=== PATIENT | male | born 1945 | race Caucasian/White ===

== ENCOUNTER 2021-03-12 21:30 | Inpatient (IN) ==
[2021-03-12] MEDS ORDERED: Naloxone 0.4 MG/ML INJ IVP PRN (23:59)
[2021-03-12] MEDS ORDERED: Ondansetron ODT 4 MG TAB.RAPDIS SL PRN (23:59)
[2021-03-13] MEDS ORDERED: Perflutren Lipid Microsphere 1.3 ML in 0.9 % Sodium Chloride 8.7 ML IVP PRN (02:17)
[2021-03-13] MEDS ORDERED: 0.9 % Sodium Chloride 500 ML IVC ONE (02:59)
[2021-03-13] MEDS: cefTRIAXone 1,000 MG in Water for inj. (sterile) 10 ML IVP SCH (03:03)
[2021-03-13 03:42] LABS: Basophils # 0.1 K/mcL (0.0-0.2); Basophils % 0.6 %; Eosinophils # 0.1 K/mcL (0.0-0.6); Eosinophils % 0.7 %; Hemoglobin 12.1 g/dL (12.9-16.9); Lymphocytes # 1.1 K/mcL (0.6-4.6); Lymphocytes % 10.6 %; Mean Corpuscular HGB Conc 34.6 g/dL (31.6-35.5); Mean Corpuscular Hemoglobin 31.4 pg (28.0-33.3); Mean Corpuscular Volume 90.9 fL (83.0-100.0); Mean Platelet Volume 10.1 fL (9.4-12.4); Monocytes # 0.9 K/mcL (0.0-1.3); Neutrophils # 8.3 K/mcL (1.6-8.9); Platelet Count 253 K/mcL (140-400); Red Blood Count 3.85 M/mcL (4.19-5.50); Red Cell Distribution Width 13.9 % (11.5-14.5); Segmented Neutrophils % 78.1 %; White Blood Count 10.7 K/mcL (4.3-11.1)
[2021-03-13 03:50] LABS: INR 1.4; Prothrombin Time 15.2 Seconds (9.4-12.1)
[2021-03-13 03:52] LABS: Activated Partial Thrombo Time 30.1 Seconds (26.0-36.0)
[2021-03-13 03:54] LABS: Bilirubin,Direct 0.2 mg/dL (0.0-0.2); Bilirubin,Indirect 0.4 mg/dL (0.0-1.0); Bilirubin,Total 0.6 mg/dL (0.3-1.0); Globulin 3.1 g/dL (2.4-3.5); Total Protein 6.1 g/dL (6.4-8.9)
[2021-03-13 03:56] LABS: Calcium 8.2 mg/dL (8.6-10.3); Potassium 3.2 mEq/L (3.5-5.1)
[2021-03-13] MEDS: Finasteride 5 MG TABLET PO SCH (08:28)
[2021-03-13 09:34] LABS: Basophils # 0.1 K/mcL (0.0-0.2); Basophils % 0.5 %; Eosinophils # 0.1 K/mcL (0.0-0.6); Eosinophils % 0.8 %; Hematocrit 35.8 % (37.5-50.1); Hemoglobin 12.1 g/dL (12.9-16.9); Immature Granulocytes % 1.8 % (0-4); Lymphocytes # 1.1 K/mcL (0.6-4.6); Lymphocytes % 10.1 %; Mean Corpuscular HGB Conc 33.8 g/dL (31.6-35.5); Mean Corpuscular Volume 91.8 fL (83.0-100.0); Mean Platelet Volume 10.4 fL (9.4-12.4); Monocytes # 0.9 K/mcL (0.0-1.3); Monocytes % 8.4 %; Neutrophils # 8.7 K/mcL (1.6-8.9); Platelet Count 272 K/mcL (140-400); Segmented Neutrophils % 78.4 %; White Blood Count 11.2 K/mcL (4.3-11.1)
[2021-03-13 09:54] LABS: Calcium 8.3 mg/dL (8.6-10.3); Potassium 3.6 mEq/L (3.5-5.1)
[2021-03-13] MEDS: 0.9 % Sodium Chloride 1,000 ML IVC SCH (15:21)
[2021-03-13] MEDS ORDERED: Melatonin 3 MG TABLET PO ONE (23:40)
[2021-03-14] MEDS: 0.9 % Sodium Chloride 1,000 ML IVC SCH ×3 (01:43→22:15)
[2021-03-14 04:07] LABS: Sodium, Urine 66.3 mEq/L
[2021-03-14 06:46] LABS: Basophils # 0.1 K/mcL (0.0-0.2); Eosinophils # 0.2 K/mcL (0.0-0.6); Eosinophils % 1.6 %; Hematocrit 37.2 % (37.5-50.1); Hemoglobin 12.4 g/dL (12.9-16.9); Immature Granulocytes % 3.9 % (0-4); Lymphocytes # 1.4 K/mcL (0.6-4.6); Mean Corpuscular HGB Conc 33.3 g/dL (31.6-35.5); Mean Corpuscular Hemoglobin 30.7 pg (28.0-33.3); Mean Corpuscular Volume 92.1 fL (83.0-100.0); Mean Platelet Volume 10.4 fL (9.4-12.4); Monocytes # 0.9 K/mcL (0.0-1.3); Monocytes % 6.7 %; Neutrophils # 10.7 K/mcL (1.6-8.9); Platelet Count 301 K/mcL (140-400); Red Blood Count 4.04 M/mcL (4.19-5.50); Red Cell Distribution Width 13.9 % (11.5-14.5); Segmented Neutrophils % 76.8 %; White Blood Count 13.9 K/mcL (4.3-11.1)
[2021-03-14] MEDS: Finasteride 5 MG TABLET PO SCH (07:36)
[2021-03-14] MEDS: cefTRIAXone 1,000 MG in Water for inj. (sterile) 10 ML IVP SCH (07:36)
[2021-03-14 08:02] LABS: Calcium 8.3 mg/dL (8.6-10.3); Potassium 3.3 mEq/L (3.5-5.1)
[2021-03-15] MEDS ORDERED: *HR* LORazepam 2 MG/ML VIAL IVP ONE (01:10)
[2021-03-15 05:17] LABS: Basophils # 0.1 K/mcL (0.0-0.2); Basophils % 0.4 %; Eosinophils # 0.4 K/mcL (0.0-0.6); Eosinophils % 2.9 %; Hematocrit 34.7 % (37.5-50.1); Hemoglobin 11.5 g/dL (12.9-16.9); Immature Granulocytes % 8.1 % (0-4); Lymphocytes # 1.5 K/mcL (0.6-4.6); Lymphocytes % 9.8 %; Mean Corpuscular HGB Conc 33.1 g/dL (31.6-35.5); Mean Corpuscular Hemoglobin 31.1 pg (28.0-33.3); Mean Corpuscular Volume 93.8 fL (83.0-100.0); Mean Platelet Volume 9.9 fL (9.4-12.4); Monocytes # 0.8 K/mcL (0.0-1.3); Monocytes % 5.7 %; Neutrophils # 10.8 K/mcL (1.6-8.9); Platelet Count 281 K/mcL (140-400); Red Cell Distribution Width 14.2 % (11.5-14.5); Segmented Neutrophils % 73.1 %; White Blood Count 14.8 K/mcL (4.3-11.1)
[2021-03-15 05:28] LABS: Calcium 8.4 mg/dL (8.6-10.3); Potassium 3.8 mEq/L (3.5-5.1)
[2021-03-15] MEDS: Finasteride 5 MG TABLET PO SCH (07:47)
[2021-03-15] MEDS: 0.9 % Sodium Chloride 1,000 ML IVC SCH ×2 (07:47→20:00)
[2021-03-15] MEDS: cefTRIAXone 1,000 MG in Water for inj. (sterile) 10 ML IVP SCH (07:48)
[2021-03-15] MEDS ORDERED: Piperacillin/Tazobactam 3.375 GM in 0.9 % Sodium Chloride Mini Bag 100 ML IVPB SCH (11:57)
[2021-03-15] MEDS: Piperacillin/Tazobactam 3.375 GM in 0.9 % Sodium Chloride Mini Bag 100 ML IVPB SCH ×2 (14:00→22:02)
[2021-03-16 03:28] LABS: Hemoglobin 11.8 g/dL (12.9-16.9); Mean Corpuscular HGB Conc 33.7 g/dL (31.6-35.5); Mean Corpuscular Hemoglobin 31.9 pg (28.0-33.3); Mean Corpuscular Volume 94.6 fL (83.0-100.0); Mean Platelet Volume 10.2 fL (9.4-12.4); Neutrophils # 15.1 K/mcL (1.6-8.9); Platelet Count 290 K/mcL (140-400); Red Cell Distribution Width 14.1 % (11.5-14.5); White Blood Count 19.4 K/mcL (4.3-11.1)
[2021-03-16 03:35] LABS: Calcium 8.4 mg/dL (8.6-10.3); Potassium 3.8 mEq/L (3.5-5.1)
[2021-03-16 04:01] LABS: Eosinophils # 1.2 K/mcL (0.0-0.6); Lymphocytes # 1.9 K/mcL (0.6-4.6); Monocytes # 1.2 K/mcL (0.0-1.3); Platelet Estimate Normal (Normal)
[2021-03-16] MEDS: 0.9 % Sodium Chloride 1,000 ML IVC SCH ×2 (05:45→12:13)
[2021-03-16] MEDS: Piperacillin/Tazobactam 3.375 GM in 0.9 % Sodium Chloride Mini Bag 100 ML IVPB SCH ×3 (05:46→21:48)
[2021-03-16] MEDS: Finasteride 5 MG TABLET PO SCH (09:14)
[2021-03-16] MEDS: Metoprolol XL (24 HR) Succ 25 MG TAB.ER.24H PO SCH (09:14)
[2021-03-16] MEDS: Ringers Solution, Lactated 1,000 ML IVC SCH (13:02)
[2021-03-16] MEDS ORDERED: *HR* Heparin 5,000 UNIT/ML VIAL IVP PRN (17:55)
[2021-03-16 19:06] LABS: Heparin anti-factor XA UFH < 0.04 IU/mL (0.30-0.70); INR 1.4; Prothrombin Time 15.1 Seconds (9.4-12.1)
[2021-03-16] MEDS: Heparin 25,000 UNIT/250 ML 25,000 UNIT/250 ML IV.SOLN IVC SCH (19:45)
[2021-03-17] MEDS: Ringers Solution, Lactated 1,000 ML IVC SCH ×2 (01:46→18:08)
[2021-03-17 02:11] LABS: Hematocrit 32.9 % (37.5-50.1); Hemoglobin 10.7 g/dL (12.9-16.9); Mean Corpuscular HGB Conc 32.5 g/dL (31.6-35.5); Mean Corpuscular Hemoglobin 30.8 pg (28.0-33.3); Mean Corpuscular Volume 94.8 fL (83.0-100.0); Mean Platelet Volume 9.8 fL (9.4-12.4); Platelet Count 287 K/mcL (140-400); Red Blood Count 3.47 M/mcL (4.19-5.50); Red Cell Distribution Width 14.4 % (11.5-14.5); White Blood Count 18.2 K/mcL (4.3-11.1)
[2021-03-17 02:22] LABS: Calcium 8.1 mg/dL (8.6-10.3); Potassium 3.9 mEq/L (3.5-5.1)
[2021-03-17 03:26] LABS: Eosinophils # 0.4 K/mcL (0.0-0.6); Lymphocytes # 1.3 K/mcL (0.6-4.6); Monocytes # 0.7 K/mcL (0.0-1.3); Neutrophils # 15.1 K/mcL (1.6-8.9); Platelet Estimate Normal (Normal)
[2021-03-17] MEDS: Piperacillin/Tazobactam 3.375 GM in 0.9 % Sodium Chloride Mini Bag 100 ML IVPB SCH ×3 (05:39→22:09)
[2021-03-17] MEDS: Metoprolol XL (24 HR) Succ 25 MG TAB.ER.24H PO SCH (09:40)
[2021-03-17] MEDS: Finasteride 5 MG TABLET PO SCH (09:40)
[2021-03-17] MEDS ORDERED: Lactulose Oral Soln 20 GM/30 ML UDC PO ONE (11:37)
[2021-03-17] MEDS: Heparin 25,000 UNIT/250 ML 25,000 UNIT/250 ML IV.SOLN IVC SCH (14:05)
[2021-03-17 16:29] LABS: Magnesium 1.8 mg/dL (1.6-2.6)
[2021-03-17] MEDS: *HR* Heparin 5,000 UNIT/ML VIAL IVP PRN ×2 (17:24→22:48)
[2021-03-18] MEDS: Heparin 25,000 UNIT/250 ML 25,000 UNIT/250 ML IV.SOLN IVC SCH ×2 (03:48→16:32)
[2021-03-18 05:47] LABS: Basophils # 0.1 K/mcL (0.0-0.2); Basophils % 0.3 %; Eosinophils # 0.4 K/mcL (0.0-0.6); Eosinophils % 2.3 %; Hematocrit 32.8 % (37.5-50.1); Hemoglobin 10.6 g/dL (12.9-16.9); Immature Granulocytes % 6.1 % (0-4); Lymphocytes # 1.6 K/mcL (0.6-4.6); Lymphocytes % 8.6 %; Mean Corpuscular HGB Conc 32.3 g/dL (31.6-35.5); Mean Corpuscular Hemoglobin 30.9 pg (28.0-33.3); Mean Corpuscular Volume 95.6 fL (83.0-100.0); Mean Platelet Volume 9.8 fL (9.4-12.4); Monocytes % 5.4 %; Neutrophils # 14.2 K/mcL (1.6-8.9); Platelet Count 288 K/mcL (140-400); Red Blood Count 3.43 M/mcL (4.19-5.50); Red Cell Distribution Width 14.5 % (11.5-14.5); Segmented Neutrophils % 77.3 %; White Blood Count 18.4 K/mcL (4.3-11.1)
[2021-03-18] MEDS: Piperacillin/Tazobactam 3.375 GM in 0.9 % Sodium Chloride Mini Bag 100 ML IVPB SCH (06:05)
[2021-03-18 06:11] LABS: Uric Acid 9.2 mg/dL (2.3-7.6)
[2021-03-18 06:12] LABS: Calcium 8.2 mg/dL (8.6-10.3); Potassium 4.1 mEq/L (3.5-5.1)
[2021-03-18 06:27] LABS: Platelet Estimate Normal (Normal); Toxic Granulation Present (Not Present)
[2021-03-18] MEDS: Finasteride 5 MG TABLET PO SCH (09:40)
[2021-03-18] MEDS: Ringers Solution, Lactated 1,000 ML IVC SCH (09:42)
[2021-03-18] MEDS: Sodium Bicarbonate 50 MEQ in 0.45 % Sodium Chloride 1,000 ML IVC SCH (12:04)
[2021-03-18] MEDS: cefTRIAXone 2,000 MG in 0.9 % Sodium Chloride Mini Bag 100 ML IVPB SCH (13:08)
[2021-03-18 16:08] LABS: Protein/Creatinine Ratio,Urine 1.02 mg/mg (0.00-0.20)
[2021-03-19 00:57] LABS: Hematocrit 30.9 % (37.5-50.1); Hemoglobin 10.4 g/dL (12.9-16.9); Mean Corpuscular HGB Conc 33.7 g/dL (31.6-35.5); Mean Corpuscular Volume 95.1 fL (83.0-100.0); Platelet Count 303 K/mcL (140-400); Red Blood Count 3.25 M/mcL (4.19-5.50); Red Cell Distribution Width 14.5 % (11.5-14.5); White Blood Count 17.2 K/mcL (4.3-11.1)
[2021-03-19 01:12] LABS: Calcium 8.2 mg/dL (8.6-10.3); Potassium 4.1 mEq/L (3.5-5.1)
[2021-03-19 01:16] LABS: Complement C3 102 mg/dL (87-200)
[2021-03-19 01:59] LABS: Hepatitis B Surface Antigen Nonreactive (Nonreactive)
[2021-03-19 02:28] LABS: Hepatitis A Antibody IgM Nonreactive (Nonreactive); Hepatitis B Core IgM Nonreactive (Nonreactive); Hepatitis C Virus Antibody Nonreactive (Nonreactive)
[2021-03-19] MEDS: Sodium Bicarbonate 50 MEQ in 0.45 % Sodium Chloride 1,000 ML IVC SCH ×2 (02:35→22:37)
[2021-03-19] MEDS: Finasteride 5 MG TABLET PO SCH (09:34)
[2021-03-19] MEDS: cefTRIAXone 2,000 MG in 0.9 % Sodium Chloride Mini Bag 100 ML IVPB SCH (12:07)
[2021-03-19 14:29] LABS: Calcium 8.5 mg/dL (8.6-10.3); Magnesium 1.9 mg/dL (1.6-2.6); Phosphorous 5.4 mg/dL (2.7-4.5); Potassium 4.5 mEq/L (3.5-5.1)
[2021-03-19] MEDS: Heparin 25,000 UNIT/250 ML 25,000 UNIT/250 ML IV.SOLN IVC SCH (14:42)
[2021-03-19] MEDS ORDERED: 0.9 % Sodium Chloride 1,000 ML IVC ONE (15:32)
[2021-03-19] MEDS ORDERED: 0.9 % Sodium Chloride 1,000 ML ONE (15:40)
[2021-03-19] MEDS ORDERED: *HR* Metoprolol 5 MG/5 ML VIAL IVP ONE ×3 (16:10→18:04)
[2021-03-19] MEDS ORDERED: 0.9 % Sodium Chloride 1,000 ML IV ONE (18:04)
[2021-03-19] MEDS: *HR* Heparin 5,000 UNIT/ML VIAL IVP PRN (21:59)
[2021-03-19 22:40] LABS: Calcium 8.2 mg/dL (8.6-10.3); Potassium 4.5 mEq/L (3.5-5.1)
[2021-03-20] MEDS: Heparin 25,000 UNIT/250 ML 25,000 UNIT/250 ML IV.SOLN IVC SCH (02:23)
[2021-03-20 05:50] LABS: Calcium 8.5 mg/dL (8.6-10.3); Potassium 3.9 mEq/L (3.5-5.1)
[2021-03-20 05:51] LABS: Albumin 2.8 g/dL (3.5-5.7); Bilirubin,Direct 0.1 mg/dL (0.0-0.2); Bilirubin,Indirect 0.3 mg/dL (0.0-1.0); Bilirubin,Total 0.4 mg/dL (0.3-1.0); Globulin 2.7 g/dL (2.4-3.5); Hematocrit 32.5 % (37.5-50.1); Hemoglobin 10.6 g/dL (12.9-16.9); Magnesium 1.6 mg/dL (1.6-2.6); Mean Corpuscular HGB Conc 32.6 g/dL (31.6-35.5); Mean Corpuscular Hemoglobin 30.9 pg (28.0-33.3); Mean Corpuscular Volume 94.8 fL (83.0-100.0); Mean Platelet Volume 10.4 fL (9.4-12.4); Phosphorous 4.8 mg/dL (2.7-4.5); Platelet Count 277 K/mcL (140-400); Red Blood Count 3.43 M/mcL (4.19-5.50); Red Cell Distribution Width 14.7 % (11.5-14.5); Total Protein 5.5 g/dL (6.4-8.9)
[2021-03-20] MEDS: *HR* Heparin 5,000 UNIT/ML VIAL IVP PRN (06:48)
[2021-03-20] MEDS: Sodium Bicarbonate 50 MEQ in 0.45 % Sodium Chloride 1,000 ML IVC SCH ×4 (08:46→22:43)
[2021-03-20] MEDS: Metoprolol XL (24 HR) Succ 25 MG TAB.ER.24H PO SCH (08:46)
[2021-03-20] MEDS: Finasteride 5 MG TABLET PO SCH (08:46)
[2021-03-20] MEDS ORDERED: Acetaminophen 325 MG TABLET PO PRN (08:53)
[2021-03-20] MEDS: cefTRIAXone 2,000 MG in 0.9 % Sodium Chloride Mini Bag 100 ML IVPB SCH (10:57)
[2021-03-20] MEDS: Apixaban 5 MG TABLET PO SCH ×2 (10:58→19:48)
[2021-03-20 11:45] LABS: Hepatitis B Surface Antibody < 3.10 mIU/mL
[2021-03-20 11:57] LABS: Hepatitis B Surface Antigen Nonreactive (Nonreactive)
[2021-03-20] MEDS ORDERED: Metoprolol XL (24 HR) Succ 25 MG TAB.ER.24H PO ONE (13:13)
[2021-03-21 00:48] LABS: Hematocrit 31.8 % (37.5-50.1); Hemoglobin 10.6 g/dL (12.9-16.9); Mean Corpuscular HGB Conc 33.3 g/dL (31.6-35.5); Mean Corpuscular Hemoglobin 31.1 pg (28.0-33.3); Mean Corpuscular Volume 93.3 fL (83.0-100.0); Mean Platelet Volume 9.9 fL (9.4-12.4); Platelet Count 279 K/mcL (140-400); Red Blood Count 3.41 M/mcL (4.19-5.50); Red Cell Distribution Width 14.6 % (11.5-14.5); White Blood Count 17.2 K/mcL (4.3-11.1)
[2021-03-21 01:02] LABS: Calcium 8.2 mg/dL (8.6-10.3); Magnesium 1.4 mg/dL (1.6-2.6); Potassium 3.8 mEq/L (3.5-5.1)
[2021-03-21] MEDS ORDERED: *HR* Metoprolol 5 MG/5 ML VIAL IVP ONE (03:28)
[2021-03-21 06:16] LABS: Urine Collection Volume NOT PROVIDED mL
[2021-03-21 06:20] LABS: Lambda Qnt Free Light Chains 44.21 mg/L (5.71-26.30)
[2021-03-21] MEDS: Sodium Bicarbonate 50 MEQ in 0.45 % Sodium Chloride 1,000 ML IVC SCH ×3 (06:54→22:28)
[2021-03-21 06:57] LABS: Kappa Qnt Free Light Chains 89.38 mg/L (3.30-19.40)
[2021-03-21 06:58] LABS: ANA IgG by ELISA NONE DETECTED (None Detected)
[2021-03-21] MEDS ORDERED: Metoprolol XL (24 HR) Succ 25 MG TAB.ER.24H PO SCH (09:00)
[2021-03-21] MEDS: Apixaban 5 MG TABLET PO SCH ×2 (09:35→20:13)
[2021-03-21] MEDS: Metoprolol XL (24 HR) Succ 25 MG TAB.ER.24H PO SCH (09:35)
[2021-03-21] MEDS: Finasteride 5 MG TABLET PO SCH (09:35)
[2021-03-21] MEDS ORDERED: Perflutren Lipid Microsphere 1.3 ML in 0.9 % Sodium Chloride 8.7 ML IVP PRN (10:39)
[2021-03-21] MEDS: cefTRIAXone 2,000 MG in 0.9 % Sodium Chloride Mini Bag 100 ML IVPB SCH (11:23)
[2021-03-22 05:06] LABS: Hematocrit 32.6 % (37.5-50.1); Hemoglobin 10.7 g/dL (12.9-16.9); Mean Corpuscular HGB Conc 32.8 g/dL (31.6-35.5); Mean Corpuscular Hemoglobin 30.7 pg (28.0-33.3); Mean Corpuscular Volume 93.4 fL (83.0-100.0); Platelet Count 287 K/mcL (140-400); Red Blood Count 3.49 M/mcL (4.19-5.50); Red Cell Distribution Width 14.3 % (11.5-14.5); White Blood Count 12.5 K/mcL (4.3-11.1)
[2021-03-22 05:09] LABS: VBG HCO3 26 mEq/L (21-27); VBG PCO2 37 mmHg (41-51); VBG PH 7.46 pH Units (7.32-7.42); VBG PO2 81 mmHg (25-50)
[2021-03-22 05:16] LABS: Albumin 2.6 g/dL (3.5-5.7); Albumin/Globulin Ratio 0.8 (1.1-2.2); Bilirubin,Direct 0.1 mg/dL (0.0-0.2); Bilirubin,Indirect 0.4 mg/dL (0.0-1.0); Bilirubin,Total 0.5 mg/dL (0.3-1.0); Calcium 8.3 mg/dL (8.6-10.3); Globulin 3.1 g/dL (2.4-3.5); Magnesium 1.7 mg/dL (1.6-2.6); Phosphorous 3.3 mg/dL (2.7-4.5); Potassium 3.5 mEq/L (3.5-5.1); Total Protein 5.7 g/dL (6.4-8.9)
[2021-03-22] MEDS: Sodium Bicarbonate 50 MEQ in 0.45 % Sodium Chloride 1,000 ML IVC SCH (06:30)
[2021-03-22] MEDS: Apixaban 5 MG TABLET PO SCH ×2 (07:59→20:37)
[2021-03-22] MEDS: Finasteride 5 MG TABLET PO SCH (07:59)
[2021-03-22] MEDS: Metoprolol XL (24 HR) Succ 25 MG TAB.ER.24H PO SCH ×2 (07:59→20:38)
[2021-03-22] MEDS: cefTRIAXone 2,000 MG in 0.9 % Sodium Chloride Mini Bag 100 ML IVPB SCH (11:47)
[2021-03-22 19:48] LABS: ANCA IFA Titer <1:20 (<1:20)
[2021-03-23] MEDS ORDERED: *HR* Metoprolol 5 MG/5 ML VIAL IVP ONE (01:24)
[2021-03-23 02:08] LABS: Alpha 2 Globulin (PEP) 0.93 g/dL (0.48-1.05); Beta Globulin (PEP) 0.69 g/dL (0.48-1.10)
[2021-03-23 05:54] LABS: Calcium 8.4 mg/dL (8.6-10.3); Potassium 3.7 mEq/L (3.5-5.1)
[2021-03-23] MEDS: Apixaban 5 MG TABLET PO SCH (08:25)
[2021-03-23] MEDS: Metoprolol XL (24 HR) Succ 25 MG TAB.ER.24H PO SCH (08:25)
[2021-03-23] MEDS: Finasteride 5 MG TABLET PO SCH (08:25)
[2021-03-23 11:46] VITALS: BP 112/67; PULSE 93; TEMP 97.7; O2SAT 92
[2021-03-23 13:13] LABS: ANCA IFA Pattern NONE DETECTED (None Detected); Immunoglobulin A 298 mg/dL (68-408); Immunoglobulin G 862 mg/dL (768-1632); Immunoglobulin M 58 mg/dL (35-263); Serine Protease-3 Antibody 0 AU/mL (0-19)
[2021-03-23 13:21] LABS: IFE Reflexed IFE Done
[2021-03-23] MEDS: cefTRIAXone 2,000 MG in 0.9 % Sodium Chloride Mini Bag 100 ML IVPB SCH (14:15)
== END 2021-03-23 15:55 | disposition home health service (06) | DRG 689 ==
LOC: 2ANU → SUATTDRO 23:31
PROVIDERS: ADMIT Internal Medicine; ATTEND Internal Medicine